=== PATIENT | female | born 1990 | race American Indian/Alaskan Native ===

== ENCOUNTER 2020-03-17 13:16 | Emergency (ER) | payer OTHER ==
--- NOTE | 2020-03-17 13:42 | Event Note ---
ED Screening Note ED Screening Note: COVID POS 12-28 CO SOB NO FEVER HR 102 COUGH PMH PCOS This initial assessment/diagnostic orders/clinical plan/treatment(s) is/are subject to change based on patients health status, clinical progression and re- assessment by fellow clinical providers in the ED. Further treatment and workup at subsequent clinical providers discretion. Patient/guardian urged not to elope from the ED as their condition may be serious if not clinically assessed and managed. Initial orders include: XR RO SECONDARY INFECTION
[2020-03-17 13:43] VITALS: BP 176/119
--- NOTE | 2020-03-17 14:13 | XRay Report ---
CHEST 2 VIEWS INDICATION: SOB. COMPARISON: None FINDINGS: Support devices: None. Heart: Within normal limits. Lungs/pleura: No acute air space or interstitial disease. No pneumothorax. Additional findings: None. IMPRESSION: Unremarkable chest films Signer Name: Don Espinoza Jr, MD Signed: 03/17/2020 2:09 PM Workstation Name: [id number]
--- NOTE | 2020-03-17 14:15 | Emergency Department Report ---
Minor Respiratory - HPI Chief Complaint: Dyspnea/Respdistress Stated Complaint: COVID POSITIVE; SHORTNESS OF BREATH; CHEST PAIN Time Seen by Provider: 03/17/20 13:40 Pain Location: Chest Severity: mild Minor Respiratory: Yes Able to Tolerate Fluids, Yes Cough, No Rhinorrhea, No Sore Throat, No Ear Pain, No Sick Contacts, No Hemoptysis, No Chest Pain, No Shortness of Breath, No Fever Other History: 29 yo obese AA RT with covid pos test 12-. co cough and fatigue. Has PCP appnt on Monday. Not hospitalized and medically managed. No co morbid med hx ED Review of Systems ROS: Stated complaint: COVID POSITIVE; SHORTNESS OF BREATH; CHEST PAIN Other details as noted in HPI Comment: All other systems reviewed and negative ED Past Medical Hx - Past Medical History Previous Medical History?: No - Surgical History Past Surgical History?: No - Family History Family history: no significant - Social History Smoking Status: Never Smoker Substance Use Type: None Minor Respiratory Exam - Exam General: Vital signs noted. No distress. Alert and acting appropriately. HEENT: Yes Moist Mucous Membranes, No Pharyngeal Erythema, No Pharyngeal Exudates, No Rhinorrhea, No Conjuctival Injection, No Frontal Tenderness, No Maxillary Tenderness Ear: Neither TM Bulge, Neither TM Erythema, Neither EAC Pain, Neither EAC Discharge Neck: Yes Supple, No Adenopathy Lungs: Yes Good Air Exchange, No Wheezes, No Ronchi, No Stridor, No Cough, No Labored Respirations, No Retractions, No Use of Accessory Muscles, No Other Abnormal Lung Sounds Heart: Yes Regular, No Murmur Abdomen: Yes Normal Bowel Sounds, No Tenderness, No Peritoneal Signs Skin: No Rash, No Edema Neurologic: Alert and oriented, no deficits. Musculoskeletal: Unremarkable. ED Course Vital Signs 03/17/20 13:42 Temperature 98 F Pulse Rate 102 H Respiratory 18 Rate Blood Pressure 176/119 [Right] O2 Sat by Pulse 100 Oximetry ED Medical Decision Making - Radiology Data Radiology results: report reviewed, image reviewed nap - Medical Decision Making xray nap HR 90 on exam pt explained on reexam when she goes to work she gets sob and they keep making her work despite not feeling well no fever or chills no follow up rapid discussed xray w pt dc home with dc poc and pcp follow up on Monday as she has scheduled; verbalizes understanding Vital Signs 03/17/20 13:42 Temperature 98 F Pulse Rate 102 H Respiratory 18 Rate Blood Pressure 176/119 [Right] O2 Sat by Pulse 100 Oximetry - Differential Diagnosis ro seconary pna Critical care attestation.: If time is entered above; I have spent that time in minutes in the direct care of this critically ill patient, excluding procedure time. ED Disposition Clinical Impression: COVID-19 Disposition: DC-01 TO HOME OR SELFCARE Is pt being admited?: No Does the pt Need Aspirin: No Condition: Stable Instructions: COVID-19 Frequently Asked Questions Additional Instructions: rest hydrate well motrin or tylenol for pain Referrals: ADITI GALINDO MD [Staff Physician] - 3-5 Days Forms: Work/School Release Form(ED) Time of Disposition: 14:18
== END 2020-03-17 14:20 | disposition home or self-care (01) ==
LOC: ED 13:16
DX: U07.1 COVID-19 (principal)
CPT/HCPCS: 71046

== ENCOUNTER 2020-04-03 08:42 | Emergency (ER) | payer OTHER ==
--- NOTE | 2020-04-03 09:47 | Event Note ---
ED Screening Note Date of service: 04/03/20 Time: 09:43 ED Screening Note: 29-year-old -[place] female presents to the emergency room for chest discomfort and shortness of breath and feeling like her heart is racing x2 weeks. Patient states that it seems to be getting worse. Patient reports she has had basic work-up. She was tried a dose of Ativan which she reports did not help. Patient states that the pain is getting worse with movement and exertion. It is located in the left upper chest. Does radiate to her left arm. Patient reports she had Covid in January. She reports she had mild symptoms when she was Covid positive was not hospitalized. This initial assessment/diagnostic orders/clinical plan/treatment(s) is/are subject to change based on patients health status, clinical progression and re- assessment by fellow clinical providers in the ED. Further treatment and workup at subsequent clinical providers discretion. Patient/guardian urged not to elope from the ED as their condition may be serious if not clinically assessed and managed. Initial orders include:
--- NOTE | 2020-04-03 10:26 | XRay Report ---
CHEST 2 VIEWS INDICATION: Tachycardic chest pain shortness of breath. COMPARISON: 03/17/2020 FINDINGS: Support devices: None. Heart: Within normal limits. Lungs: No acute air space or interstitial disease. Pleura: No significant pleural effusion. No pneumothorax. Additional findings: None. IMPRESSION: 1. No acute findings. Signer Name: Juan Nunez MD Signed: 04/03/2020 10:21 AM Workstation Name: [id number]
[2020-04-03 10:40] LABS: Basophils # (Auto) 0.1 K/mm3 (0.0-0.1); Basophils % (Auto) 0.7 % (0.0-1.8); Eosinophils # (Auto) 0.2 K/mm3 (0.0-0.4); Eosinophils % (Auto) 2.7 % (0.0-4.3); Hemoglobin 12.7 gm/dl (10.1-14.3); Lymphocytes # (Auto) 2.4 K/mm3 (1.2-5.4); Lymphocytes % (Auto) 27.9 % (13.4-35.0); Mean Corpuscular HGB Conc 34 % (30-34); Mean Corpuscular Volume 87 fl (79-97); Monocytes # (Auto) 0.5 K/mm3 (0.0-0.8); Monocytes % (Auto) 5.4 % (0.0-7.3); Platelet Count 352 K/mm3 (140-440); Red Blood Count 4.37 M/mm3 (3.65-5.03); Red Cell Distribution Width 13.9 % (13.2-15.2)
[2020-04-03 11:09] LABS: Alanine Aminotransferase 13 units/L (7-56); Albumin 4.2 g/dL (3.9-5); Blood Urea Nitrogen 10 mg/dL (7-17); Hemolysis Index 2
[2020-04-03 11:12] LABS: BUN/Creatinine Ratio 25
--- NOTE | 2020-04-03 11:57 | Emergency Department Report ---
ED Palpitations HPI - General Chief Complaint: Chest Pain Stated Complaint: CHEST PAIN,SOB, TACHYARDIA Time Seen by Provider: 04/03/20 10:41 Source: patient Mode of arrival: Ambulatory Limitations: No Limitations - History of Present Illness Initial Comments: Chief complaint: "I feel like I am going to ." HPI: This is a 29-year-old female with history of PCOS who was diagnosed with COVID-19 infection at the end of January. Since her diagnosis she has had palpitations rapid heartbeat. She feels as if her heart is fluttering. She has intermittent chest pressure. The pain also becomes sharp at that time. Pain is not associated with exertion movement breathing. She also has associated left arm pain. Her PCP diagnosed her with anxiety. Ativan did not improve her symptoms.. She only used 1 dose of this medication. Patient is frustrated that she just has not been feeling well. When she has the rapid heartbeat she becomes extremely scared that she is going to "". She does not take oral contraceptives. However she does have IUD in place. She is currently symptom-free. The palpitations chest pain occurs sporadically. She denies leg pain. Patient does not smoke tobacco. Patient drinks alcohol socially rarely. Patient does not smoke marijuana. Patient works as a respiratory therapist. No family history of cardiac disease or sudden . There is a family history of hypertension and CVA Patient is followed by both primary care physician and food service aide. MD Complaint: rapid heart beat, "heart racing" -: Gradual, week(s) (5 weeks) Context: occured during rest, occured during exertion Arrythmia History: other Associated Symptoms: chest pain (No history of arrhythmia), shortness of breath - Related Data Allergies Allergy/AdvReac Type Severity Reaction Status Date / Time No Known Allergies Allergy Unverified 03/17/20 13:42 ED Review of Systems ROS: Stated complaint: CHEST PAIN,SOB, TACHYARDIA Other details as noted in HPI Comment: All other systems reviewed and negative Constitutional: denies: fever, malaise Respiratory: shortness of breath. denies: cough Cardiovascular: chest pain, palpitations Gastrointestinal: denies: abdominal pain, nausea, vomiting ED Past Medical Hx - Past Medical History Previous Medical History?: No - Surgical History Past Surgical History?: No - Social History Smoking Status: Never Smoker Substance Use Type: Alcohol ED Physical Exam - General Limitations: No Limitations General appearance: alert, in no apparent distress - Head Head exam: Present: atraumatic, normocephalic - Eye Eye exam: Present: normal appearance - ENT ENT exam: Present: mucous membranes moist - Neck Neck exam: Present: normal inspection, full ROM - Respiratory Respiratory exam: Present: normal lung sounds bilaterally. Absent: respiratory distress, wheezes, rales, rhonchi - Cardiovascular Cardiovascular Exam: Present: regular rate, normal rhythm, normal heart sounds. Absent: systolic murmur, diastolic murmur, rubs, gallop - GI/Abdominal GI/Abdominal exam: Present: soft, normal bowel sounds. Absent: distended, ten derness, guarding, rebound - Extremities Exam Extremities exam: Present: normal inspection - Neurological Exam Neurological exam: Present: alert, oriented X3 - Psychiatric Psychiatric exam: Present: normal affect, normal mood - Skin Skin exam: Present: warm, dry, intact, normal color. Absent: rash ED Course Vital Signs 04/03/20 08:52 Temperature 99.0 F Pulse Rate 122 H Respiratory 18 Rate Blood Pressure 156/106 O2 Sat by Pulse 100 Oximetry ED Medical Decision Making - Lab Data Result diagrams: 04/03/20 09:49 04/03/20 09:49 - EKG Data -: EKG Interpreted by Ar EKG shows normal: sinus rhythm, axis, intervals, QRS complexes, ST-T waves Rate: tachycardia - EKG Data Interpretation: normal EKG 04/03/20 11:54 EKG obtained 0857 EKG interpreted by mt Sinus tachycardia rate 110 bpm normal axis normal intervals no ST-T signs ischemia normal EKG with exception of tachycardia EKG obtained 1119 EKG interpreted by mt EKG obtained EKG interpreted by mt Normal sinus rhythm normal rate normal axis normal intervals no ST elevation no ST-T signs of ischemia normal EKG rate 95 bpm - Radiology Data Radiology results: report reviewed Chest radiograph: No acute findings CTA CHEST WITH CONTRAST INDICATION : Chest pain, back pain, tachycardia. TECHNIQUE: Axial imaging performed through the chest, with contrast bolus timing set to maximize opacification of the pulmonary arteries. Sagittal and coronal reformatted images. 3-plane MIP reformatted images were obtained. All CT scans at this location are performed using CT dose reduction for ALARA by means of automated exposure control. 100 mL of intravenous contrast administered. COMPARISON: None FINDINGS: Bolus: Contrast bolus timing is adequate. PTE: No filling defect is present to suggest PTE. Mediastinum: Heart and great vessels appear normal. No pathologic mediastinal adenopathy. Lungs: Lungs are clear. Bones: No significant abnormality. Upper abdomen: Limited imaging of the upper abdomen shows nothing acute. - Medical Decision Making Is a 29-year-old female who presents with chest pain palpitation shortness of breath since diagnosed with COVID-19 infection at the end of January. I suspect residual symptoms. Patient is at risk for VTE. D-dimer is within normal limits. However with prolonged, significant symptoms VTE is still a possibility with normal D-dimer in this scenario. Consequently CT angiogram of the chest was ordered CT angiogram negative for lung process or VTE. Patient was given extensive s upportive care instructions. She understands that recovery from COVID-19 may take up to 3 to 6 months. She will follow-up with her primary physician on Monday. She plans to request a cardiology referral. Patient also stated that she has history of PCOS. Encouraged her to take Metformin and to make lifestyle diet changes. Critical care attestation.: If time is entered above; I have spent that time in minutes in the direct care of this critically ill patient, excluding procedure time. ED Disposition Clinical Impression: COVID-19, Palpitations, Tachycardia, Dyspnea on exertion Disposition: DC- TO HOME OR SELFCARE Is pt being admited?: No Does the pt Need Aspirin: No Condition: Stable Instructions: COVID-19 Frequently Asked Questions Referrals: PRIMARY CARE, [Primary Care Provider] - 3-5 Days Forms: Work/School Release Form(ED)
--- NOTE | 2020-04-03 13:47 | Cat Scan Report ---
CTA CHEST WITH CONTRAST INDICATION : Chest pain, back pain, tachycardia. TECHNIQUE: Axial imaging performed through the chest, with contrast bolus timing set to maximize opa cification of the pulmonary arteries. Sagittal and coronal reformatted images. 3-plane MIP reformatte d images were obtained. All CT scans at this location are performed using CT dose reduction for ALAR A by means of automated exposure control. 100 mL of intravenous contrast administered. COMPARISON: None FINDINGS: Bolus: Contrast bolus timing is adequate. PTE: No filling defect is present to suggest PTE. Mediastinum: Heart and great vessels appear normal. No pathologic mediastinal adenopathy. Lungs: Lungs are clear. Bones: No significant abnormality. Upper abdomen: Limited imaging of the upper abdomen shows nothing acute. IMPRESSION: Negative for PTE. Clear lungs. Signer Name: Don Espinoza Jr, MD Signed: 04/03/2020 1:43 PM Workstation Name: [id number]
[2020-04-03 14:22] VITALS: BP 134/93
== END 2020-04-03 14:33 | disposition home or self-care (01) ==
LOC: ED 08:42
DX: U07.1 COVID-19 (principal); R00.2 Palpitations; R00.0 Tachycardia, unspecified; R06.00 Dyspnea, unspecified
CPT/HCPCS: 36415; 71046; 71275; 80053; 84443; 84484; 85025; 85379; 93005; 99284; Q9967